=== PATIENT | male | born 1950 | race Caucasian/White ===

== ENCOUNTER 2018-03-08 14:03 | Outpatient (CLI) | payer MEDICARE ==
[2018-03-08 14:17] LABS: Bilirubin Negative (Negative); Blood, Urine Negative (Negative); Clarity Clear (Clear); Glucose, Urine (Dipstick) Negative (Negative); Leukocyte Negative (Negative); Nitrite Negative (Negative); Protein, Urine (Dipstick) Negative (Neg-Trace); Urobilinogen 0.2 mg/dL (0.2-1.0)
[2018-03-08 14:27] LABS: Bacteria/HPF None Seen HPF (None Seen); RBC/HPF None Seen HPF (0-3); Squamous Epithelial 0-3 HPF (0-3); WBC/HPF None Seen HPF (0-3)
[2018-03-08 14:29] LABS: #Basophils 0.1 thou/uL (0.0-0.2); #Eosinphils 0.4 thou/uL (0.0-0.7); #Monocytes 0.5 thou/uL (0.11-0.59); #Neutrophils 2.7 thou/uL (1.40-6.50); %Basophils 1.4 % (0.0-1.0); %Eosinophils 7.5 % (0.0-10.0); %Lymphocytes 34.3 % (21.0-51.0); %Monocytes 9.1 % (0.0-10.0); %Neutrophils 47.8 % (42.0-75.0); Hemoglobin 14.6 g/dL (14.0-18.0); Mean Corpuscular HGB CONC 33.5 g/dL (32.0-36.0); Mean Corpuscular Hemoglobin 31.4 pg (27.0-31.0); Mean Corpuscular Volume 93.6 fL (78.0-98.0); Platelet Count 202 thou/uL (130-400); RBC Distribution Width 11.8 % (11.5-14.5); Red Blood Cell (RBC) Count 4.66 mill/uL (4.70-6.10); White Blood Cell (WBC) Count 5.7 thou/uL (4.8-10.8)
[2018-03-08 14:53] LABS: ALT (SGPT) 12 U/L (8-55); AST (SGOT) 15 U/L (5-34); Albumin 4.7 g/dL (3.4-4.8); Alkaline Phosphatase 53 U/L (40-150); Anion Gap 16 mmol/L (10-20); BUN (Urea Nitrogen) 11 mg/dL (8.4-25.7); Bilirubin, Total 0.4 mg/dL (0.2-1.2); Calc. Creatinine Clearance 0 mL/min (70-130); Calcium 10.1 mg/dL (7.8-10.44); Carbon Dioxide 26 mmol/L (23-31); Cardiac Risk 4.1 (Less than 4.5); Chloride 104 mmol/L (98-107); Cholesterol 188 mg/dl (< 200 Desired); Estimated GFR-MDRD 63; Globulin 2.7 g/dL (2.4-3.5); Glucose 90 mg/dL (80-115); HDL Cholesterol 46 mg/dL (>60 Neg Risk); LDL Cholesterol, Calculated 117 mg/dL; Potassium 4.7 mmol/L (3.5-5.1); Protein, Total 7.4 g/dL (5.8-8.1); Sodium 141 mmol/L (136-145); Triglycerides 124 mg/dL (Less than 150)
== END 2018-03-08 14:04 | disposition home or self-care (01) ==
LOC: MADLAB 14:03
PROVIDERS: ATTEND Family Medicine
DX: R55 Syncope and collapse (principal); I35.1 Nonrheumatic aortic (valve) insufficiency
CPT/HCPCS: 36415; 80053; 80061; 81001; 84443; 85025; 93005; 93010

== ENCOUNTER 2018-07-21 09:20 | Outpatient (CLI) | payer MEDICARE ==
--- NOTE | 2018-07-21 10:57 | RAD ---
TWO VIEWS CHEST: Comparison: 07-11-16 History: Asthma. FINDINGS: Two views of the chest show normal sized cardiomediastinal silhouette. There is no evidence of consol idation, mass, or pleural effusion. The bones are unremarkable. IMPRESSION: No evidence of acute cardiopulmonary disease. POS: [facility]
== END 2018-07-21 09:21 | disposition home or self-care (01) ==
LOC: MADRAD 09:20
PROVIDERS: ATTEND Family Medicine
DX: J45.901 Unspecified asthma with (acute) exacerbation (principal)
CPT/HCPCS: 71046

== ENCOUNTER 2025-06-01 08:16 | Outpatient (CLI) | payer MEDICARE ==
[2025-06-01 08:43] LABS: Anion Gap 13 mmol/L (10-20); BUN (Urea Nitrogen) 21 mg/dL (8.4-25.7); Calc. Creatinine Clearance 0 mL/min (70-130); Calcium 9.3 mg/dL (7.8-10.44); Carbon Dioxide 27 mmol/L (23-31); Chloride 106 mmol/L (98-107); Glucose 98 mg/dL (83-110); Glucose, Urine (Dipstick) Negative (Negative); Leukocyte Negative (Negative); Potassium 4.5 mmol/L (3.5-5.1); Protein, Urine (Dipstick) Negative (Neg-Trace); Sodium 141 mmol/L (136-145); Specific Gravity, Urine 1.015 (1.005-1.030)
[2025-06-01 09:01] LABS: RBC/HPF 0-3 HPF (0-3)
[2025-06-01 09:02] LABS: Bacteria/HPF Rare-Few HPF (None Seen); WBC/HPF 0-3 HPF (0-3)
== END 2025-06-01 08:17 | disposition home or self-care (01) ==
LOC: MADLAB 08:16
PROVIDERS: ATTEND Urology
DX: C61 Malignant neoplasm of prostate (principal)
CPT/HCPCS: 36415; 80048; 81001; G0103